=== PATIENT | male | born 1955 | race Two or more races ===

== ENCOUNTER 2021-02-19 15:46 | Emergency (ER) | payer OTHER ==
[2021-02-19 15:57] VITALS: BP 135/79; PULSE 83; TEMP 97.7; BMI 21.9
[2021-02-19] MEDS ORDERED: METHOCARBAMOL 500 MG TABLET PO ONE (16:29)
[2021-02-19] MEDS ORDERED: KETOROLAC TROMETHAMINE 30 MG/1 ML VIAL IM ONE (16:29)
[2021-02-19] MEDS ORDERED: LIDOCAINE 5% TOPICAL PATCH TP ONE (16:30)
[2021-02-19] MEDS ORDERED: LIDOCAINE 5% TOPICAL PATCH ONE (17:11)
[2021-02-19] MEDS ORDERED: METHOCARBAMOL 500 MG TABLET ONE (17:11)
[2021-02-19] MEDS ORDERED: KETOROLAC TROMETHAMINE 30 MG/1 ML VIAL ONE (17:12)
== END 2021-02-19 18:16 | disposition home or self-care (01) ==
LOC: JER 15:46
PROC: 3E0233Z Introduction of Anti-inflammatory into Muscle, Percutaneous Approach (ICD-10-PCS; principal; 2021-02-19)
DX: M62.830 Muscle spasm of back (principal); M54.41 Lumbago with sciatica, right side
CPT/HCPCS: 72050-TC-FY; 72100-TC-FY; 99284-25

== ENCOUNTER 2021-03-03 04:10 | Inpatient (IN) | payer OTHER ==
[2021-03-02 09:10] VITALS: BMI 23.6
[2021-03-03] MEDS ORDERED: GENTAMICIN SO4 80 MG/2 ML VIAL ONE ×2 (07:04→10:59)
[2021-03-03] MEDS ORDERED: VANCOMYCIN 1,000 MG VIAL (RESTRICTED TO ID ONLY) ONE ×2 (07:05→08:51)
[2021-03-03] MEDS ORDERED: LIDOCAINE 1%/EPI 1:100000 (50 ML MULTI DOSE VIAL) ONE ×2 (07:05→10:24)
[2021-03-03] MEDS ORDERED: THROMBIN (BOVINE) 5,000 UNIT VIAL TP ONE ×7 (07:05→12:43)
[2021-03-03] MEDS ORDERED: PROPOFOL 20 ML ONE (07:09)
[2021-03-03] MEDS ORDERED: fentaNYL CITRATE 250 MCG/5 ML VIAL ONE ×3 (07:09→12:26)
[2021-03-03] MEDS ORDERED: ROCURONIUM BROMIDE 50 MG/5 ML SYRINGE ONE ×2 (07:10→11:21)
[2021-03-03] MEDS ORDERED: MIDAZOLAM HCL 2 MG/2 ML SINGLE DOSE VIAL ONE ×2 (07:10)
[2021-03-03 08:09] LABS: URINE APPEARANCE CLEAR; URINE BILIRUBIN NEGATIVE (NEGATIVE); URINE COLOR YELLOW; URINE GLUCOSE (UA) NEGATIVE (NEGATIVE); URINE KETONE NEGATIVE (NEGATIVE); URINE LEUK ESTERASE NEGATIVE (NEGATIVE); URINE NITRITE NEGATIVE (NEGATIVE); URINE PROTEIN NEGATIVE (NEGATIVE); URINE UROBILINOGEN 0.2 mg/dL (0.2-1.0)
[2021-03-03] MEDS ORDERED: ceFAZolin SODIUM 1 GM VIAL IVPB ONE ×3 (08:25→14:20)
[2021-03-03] MEDS ORDERED: LIDOCAINE 1%/EPI 1:100000 (50 ML MULTI DOSE VIAL) INF ONE ×2 (08:48)
[2021-03-03] MEDS ORDERED: TRANEXAMIC ACID 1000 MG/10 ML VIAL ONE (08:51)
[2021-03-03] MEDS ORDERED: DEXAMETHASONE SOD PHOSPHATE 4 MG/1 ML VIAL ONE (08:51)
[2021-03-03] MEDS ORDERED: ceFAZolin SODIUM 1 GM VIAL ONE ×2 (08:51→20:52)
[2021-03-03] MEDS ORDERED: ONDANSETRON 4 MG/2 ML VIAL ONE (08:51)
[2021-03-03] MEDS ORDERED: HYDROmorphone HCl 2 MG/ML VIAL ONE (08:57)
[2021-03-03] MEDS ORDERED: VANCOMYCIN 1,000 MG VIAL (RESTRICTED TO ID ONLY) IVPB ONE (08:59)
[2021-03-03] MEDS ORDERED: BACITRACIN 50,000 UNITS VIAL TP ONE ×2 (09:40)
[2021-03-03] MEDS ORDERED: GENTAMICIN SO4 80 MG/2 ML VIAL IVPB ONE ×2 (09:41)
[2021-03-03] MEDS ORDERED: HYDROGEN PEROXIDE 473 ML PO ONE ×2 (09:44)
[2021-03-03] MEDS ORDERED: BUPIVACAINE LIPOSOME/PF (EXPAREL) 266 MG/20 ML VIAL ONE ×2 (11:00→13:28)
[2021-03-03] MEDS ORDERED: METHOCARBAMOL 500 MG TABLET PO PRN (12:31)
[2021-03-03] MEDS ORDERED: [UNRECOGNIZED DRUG - OTHER] PO PRN (12:31)
[2021-03-03] MEDS ORDERED: PHENYLEPHRINE HCL 10 MG/1 ML SINGLE DOSE VIAL ONE ×2 (13:14→13:15)
[2021-03-03] MEDS ORDERED: NEOSTIGMINE METHYLSULFATE 0.5 MG/1 ML - 10 ML MDV ONE (13:27)
[2021-03-03] MEDS ORDERED: GLYCOPYRROLATE 0.2 MG/1 ML VIAL ONE (13:27)
[2021-03-03] MEDS ORDERED: BUPIVACAINE LIPOSOME/PF (EXPAREL) 266 MG/20 ML VIAL NR ONE (14:00)
[2021-03-03] MEDS ORDERED: BUPIVACAINE HCL/PF 0.5% (5 MG/ML) 30 ML VIAL IJ ONE (14:00)
[2021-03-03] MEDS ORDERED: SUCCINYLCHOLINE CHLORIDE 200 MG/10 ML SYRINGE ONE (14:13)
[2021-03-03] MEDS ORDERED: oxyCODONE HCL 5 MG TABLET PO PRN (14:46)
[2021-03-03] MEDS ORDERED: ONDANSETRON 4 MG/2 ML VIAL IVPUSH PRN ×2 (14:46→15:09)
[2021-03-03] MEDS ORDERED: HYDROmorphone HCl 2 MG/ML VIAL SQ PRN (14:46)
[2021-03-03] MEDS ORDERED: ACETAMINOPHEN 1000 MG/100 ML VIAL (NON FORMULARY) IVPB PRN (15:09)
[2021-03-03] MEDS ORDERED: ACETAMINOPHEN INJECTION 100 ML IVPB ONE (19:39)
[2021-03-03] MEDS: LACTATED RINGERS SOLUTION 1,000 ML IV SCH (20:00)
[2021-03-03 20:47] LABS: ARTERIAL BLD GAS O2 SATURATION 97.2 mmHg (95-98); ARTERIAL BLOOD GAS BASE EXCESS -2.3 mmol/L (-2-2); ARTERIAL BLOOD GAS PO2 96.1 mmHg (80-100); ARTERIAL BLOOD GAS pH 7.374 (7.350-7.450)
[2021-03-03 20:48] LABS: ALLENS TEST POSITIVE
[2021-03-03 21:00] LABS: BASO % 0.1 % (0-2.0); HEMOGLOBIN 12.2 GM/dL (11.7-16.9); LYMPH % 2.6 % (8-40); MCH 30.4 pg (25.7-33.7); MEAN CELL VOLUME 92.2 fl (80-96); MEAN PLT VOLUME 9.6 fl (7.5-11.1); MONO % 2.3 % (3.8-10.2); PLATELET COUNT 176 K/MM3 (134-434); RBC 4.02 M/mm3 (4.00-5.60); RDW 12.6 % (11.9-15.9); WHITE BLOOD COUNT 16.9 K/mm3 (4.0-10.0)
[2021-03-03] MEDS: CEFAZOLIN 2 GM/D5W 2 GM/50 ML ML IVPB SCH (21:00)
[2021-03-03 21:20] LABS: CALCIUM 8.3 mg/dL (8.5-10.1)
[2021-03-03 21:21] LABS: BLOOD UREA NITROGEN 17.1 mg/dL (7-18)
[2021-03-03 21:23] LABS: PHOSPHOROUS 2.7 mg/dL (2.5-4.9)
[2021-03-03 21:24] LABS: CREATININE 0.9 mg/dL (0.55-1.3)
[2021-03-03 21:25] LABS: BILIRUBIN,TOTAL 0.7 mg/dL (0.2-1); TOT PROT 5.6 g/dl (6.4-8.2)
[2021-03-03 22:53] LABS: ANISOCYTOSIS 0; MACROCYTOSIS 0; PLATELET ESTIMATE NORMAL
[2021-03-04] MEDS: CEFAZOLIN 2 GM/D5W 2 GM/50 ML ML IVPB SCH ×2 (02:02→09:34)
[2021-03-04] MEDS: LACTATED RINGERS SOLUTION 1,000 ML IV SCH ×2 (02:05→15:51)
[2021-03-04 07:39] LABS: HEMATOCRIT 32.8 % (35.4-49); HEMOGLOBIN 11.2 GM/dL (11.7-16.9); MCH 31.1 pg (25.7-33.7); MCHC 34.1 g/dl (32.0-35.9); MEAN PLT VOLUME 9.5 fl (7.5-11.1); PLATELET COUNT 166 K/MM3 (134-434); WHITE BLOOD COUNT 19.1 K/mm3 (4.0-10.0)
[2021-03-04 08:03] LABS: CALCIUM 8.3 mg/dL (8.5-10.1)
[2021-03-04 08:04] LABS: BLOOD UREA NITROGEN 17.3 mg/dL (7-18); MAGNESIUM 1.7 mg/dL (1.8-2.4)
[2021-03-04 08:07] LABS: CREATININE 0.8 mg/dL (0.55-1.3)
[2021-03-04] MEDS: amLODIPine BESYLATE 5 MG TABLET (FP) PO SCH (09:34)
[2021-03-04] MEDS: oxyCODONE HCL 5 MG TABLET PO PRN (12:54)
[2021-03-04] MEDS: HYDROmorphone HCl 2 MG/ML VIAL IVPB PRN ×2 (14:42→21:42)
[2021-03-04] MEDS: BENZOCAINE/MENTH/CETYLPYRD CL 1 EACH LOZENGE MM PRN ×2 (17:00→21:46)
[2021-03-04] MEDS: DOCUSATE SODIUM 100 MG CAPSULE (FP) PO SCH (21:45)
[2021-03-05] MEDS ORDERED: MELATONIN 5 MG TABLETS PO ONE (02:15)
[2021-03-05] MEDS: BENZOCAINE/MENTH/CETYLPYRD CL 1 EACH LOZENGE MM PRN ×2 (02:17→18:09)
[2021-03-05] MEDS: DOCUSATE SODIUM 100 MG CAPSULE (FP) PO SCH ×3 (06:46→22:11)
[2021-03-05] MEDS ORDERED: diazePAM 5 MG TABLET PO SCH (10:00)
[2021-03-05] MEDS ORDERED: POLYETHYLENE GLYCOL 3350 119 GM BTL PO SCH (10:00)
[2021-03-05] MEDS: amLODIPine BESYLATE 5 MG TABLET (FP) PO SCH (10:40)
[2021-03-05] MEDS: oxyCODONE HCL 5 MG TABLET PO PRN (10:40)
[2021-03-05 12:02] LABS: BASO % 0.3 % (0-2.0); EOS % 0.1 % (0-4.5); HEMATOCRIT 30.2 % (35.4-49); HEMOGLOBIN 10.2 GM/dL (11.7-16.9); LYMPH % 4.8 % (8-40); MCH 31.1 pg (25.7-33.7); MCHC 33.7 g/dl (32.0-35.9); MEAN CELL VOLUME 92.2 fl (80-96); MEAN PLT VOLUME 9.1 fl (7.5-11.1); MONO % 8.8 % (3.8-10.2); PLATELET COUNT 131 K/MM3 (134-434); RBC 3.28 M/mm3 (4.00-5.60); RDW 12.5 % (11.9-15.9); WHITE BLOOD COUNT 15.3 K/mm3 (4.0-10.0)
[2021-03-05] MEDS: TAMSULOSIN HCL 0.4 MG CAP PO SCH (12:15)
[2021-03-05 12:26] LABS: CALCIUM 8.6 mg/dL (8.5-10.1)
[2021-03-05 12:27] LABS: ALBUMIN 2.8 g/dl (3.4-5.0); BLOOD UREA NITROGEN 15.3 mg/dL (7-18); MAGNESIUM 2.1 mg/dL (1.8-2.4)
[2021-03-05 12:30] LABS: CREATININE 0.7 mg/dL (0.55-1.3)
[2021-03-05 12:31] LABS: TOT PROT 5.4 g/dl (6.4-8.2)
[2021-03-05] MEDS ORDERED: oxyCODONE HCL 5 MG TABLET PO PRN (13:48)
[2021-03-05] MEDS ORDERED: ACETAMINOPHEN 500 MG TABLET (FP) PO PRN (16:22)
[2021-03-05] MEDS ORDERED: METHOCARBAMOL 500 MG TABLET PO PRN (23:33)
[2021-03-05] MEDS ORDERED: [UNRECOGNIZED DRUG - OTHER] PO PRN (23:33)
[2021-03-05] MEDS ORDERED: BENZOCAINE/MENTH/CETYLPYRD CL 1 EACH LOZENGE MM PRN (23:33)
[2021-03-05] MEDS ORDERED: ONDANSETRON 4 MG/2 ML VIAL IVPUSH PRN (23:33)
[2021-03-06] MEDS: diazePAM 5 MG TABLET PO PRN (02:07)
[2021-03-06] MEDS ORDERED: LORazepam 2 MG/ML SDV VIAL IVPUSH ONE (02:39)
[2021-03-06] MEDS: DOCUSATE SODIUM 100 MG CAPSULE (FP) PO SCH ×3 (05:44→22:31)
[2021-03-06] MEDS ORDERED: ACETAMINOPHEN 1000 MG/100 ML VIAL (NON FORMULARY) IVPB ONE (09:55)
[2021-03-06] MEDS: SODIUM CHLORIDE 1,000 ML IV SCH (10:10)
[2021-03-06] MEDS ORDERED: BISACODYL 10 MG SUPP.RECT PR ONE (10:15)
[2021-03-06] MEDS: TAMSULOSIN HCL 0.4 MG CAP PO SCH (10:16)
[2021-03-06] MEDS: POLYETHYLENE GLYCOL 3350 119 GM BTL PO SCH (10:16)
[2021-03-06] MEDS: amLODIPine BESYLATE 5 MG TABLET (FP) PO SCH (10:19)
[2021-03-06 11:08] LABS: SARS-CoV-2 NAA Not Detected (Not Detected)
[2021-03-06] MEDS: AMINO ACIDS 4.25%/D5W 1,000 ML IV SCH (12:06)
[2021-03-06 12:52] LABS: EPI CELLS 8 /uL (0-25.1); HYALINE CASTS 0 /uL (0-3.1); PH,URINE 6.5 (5.0-8.0); URINE APPEARANCE CLEAR; URINE BACTERIA 124 /uL (0-1359); URINE BILIRUBIN NEGATIVE (NEGATIVE); URINE COLOR YELLOW; URINE GLUCOSE (UA) NEGATIVE (NEGATIVE); URINE KETONE 4+ (NEGATIVE); URINE LEUK ESTERASE NEGATIVE (NEGATIVE); URINE NITRITE NEGATIVE (NEGATIVE); URINE PROTEIN NEGATIVE (NEGATIVE); URINE RBC 25 /uL (0-23.9); URINE WBC 3 /uL (0-25.8)
[2021-03-06 14:18] LABS: BASO % 0.2 % (0-2.0); EOS % 0.1 % (0-4.5); HEMATOCRIT 31.4 % (35.4-49); HEMOGLOBIN 10.6 GM/dL (11.7-16.9); MCH 31.3 pg (25.7-33.7); MCHC 33.9 g/dl (32.0-35.9); MEAN CELL VOLUME 92.5 fl (80-96); MEAN PLT VOLUME 9.5 fl (7.5-11.1); MONO % 5.5 % (3.8-10.2); NEUT % 90.2 % (42.8-82.8); PLATELET COUNT 146 K/MM3 (134-434); RBC 3.39 M/mm3 (4.00-5.60); RDW 12.5 % (11.9-15.9); WHITE BLOOD COUNT 16.4 K/mm3 (4.0-10.0)
[2021-03-06 14:23] LABS: CALCIUM 8.7 mg/dL (8.5-10.1)
[2021-03-06 14:24] LABS: ALBUMIN 2.8 g/dl (3.4-5.0); BLOOD UREA NITROGEN 15.8 mg/dL (7-18)
[2021-03-06 14:27] LABS: CREATININE 0.6 mg/dL (0.55-1.3)
[2021-03-06 14:28] LABS: TOT PROT 5.6 g/dl (6.4-8.2)
[2021-03-07] MEDS ORDERED: ACETAMINOPHEN 1000 MG/100 ML VIAL (NON FORMULARY) IVPB ONE ×2 (02:24→15:49)
[2021-03-07] MEDS: diazePAM 5 MG TABLET PO PRN (03:48)
[2021-03-07] MEDS: DOCUSATE SODIUM 100 MG CAPSULE (FP) PO SCH ×3 (05:04→21:04)
[2021-03-07] MEDS: TAMSULOSIN HCL 0.4 MG CAP PO SCH (09:30)
[2021-03-07] MEDS: amLODIPine BESYLATE 5 MG TABLET (FP) PO SCH (11:00)
[2021-03-07] MEDS: POLYETHYLENE GLYCOL 3350 119 GM BTL PO SCH (11:00)
[2021-03-07] MEDS: AMINO ACIDS 4.25%/D5W 1,000 ML IV SCH (11:22)
[2021-03-07] MEDS: SODIUM CHLORIDE 1,000 ML IV SCH (11:23)
[2021-03-07 13:36] LABS: BASO % 0.1 % (0-2.0); EOS % 0.4 % (0-4.5); HEMATOCRIT 31.1 % (35.4-49); HEMOGLOBIN 10.6 GM/dL (11.7-16.9); LYMPH % 6.1 % (8-40); MCH 31.3 pg (25.7-33.7); MCHC 34.2 g/dl (32.0-35.9); MEAN CELL VOLUME 91.4 fl (80-96); MEAN PLT VOLUME 9.1 fl (7.5-11.1); MONO % 7.5 % (3.8-10.2); NEUT % 85.9 % (42.8-82.8); PLATELET COUNT 190 K/MM3 (134-434); RDW 12.1 % (11.9-15.9); WHITE BLOOD COUNT 9.9 K/mm3 (4.0-10.0)
[2021-03-07 14:08] LABS: ALBUMIN 2.7 g/dl (3.4-5.0); MAGNESIUM 2.4 mg/dL (1.8-2.4)
[2021-03-07 14:11] LABS: CREATININE 0.5 mg/dL (0.55-1.3)
[2021-03-07 14:13] LABS: BILIRUBIN,TOTAL 0.7 mg/dL (0.2-1); TOT PROT 5.8 g/dl (6.4-8.2)
[2021-03-08] MEDS: diazePAM 5 MG TABLET PO PRN ×2 (01:03→21:11)
[2021-03-08] MEDS ORDERED: LORazepam 2 MG/ML SDV VIAL IVPUSH ONE (01:35)
[2021-03-08] MEDS: DOCUSATE SODIUM 100 MG CAPSULE (FP) PO SCH ×3 (05:12→21:11)
[2021-03-08 08:24] LABS: BASO % 0.3 % (0-2.0); EOS % 0.4 % (0-4.5); HEMATOCRIT 30.3 % (35.4-49); HEMOGLOBIN 10.5 GM/dL (11.7-16.9); LYMPH % 7.5 % (8-40); MCH 31.8 pg (25.7-33.7); MCHC 34.6 g/dl (32.0-35.9); MEAN CELL VOLUME 91.9 fl (80-96); MEAN PLT VOLUME 8.5 fl (7.5-11.1); MONO % 7.6 % (3.8-10.2); NEUT % 84.2 % (42.8-82.8); PLATELET COUNT 205 K/MM3 (134-434); RDW 12.3 % (11.9-15.9); WHITE BLOOD COUNT 9.8 K/mm3 (4.0-10.0)
[2021-03-08 08:37] LABS: CALCIUM 8.7 mg/dL (8.5-10.1)
[2021-03-08 08:38] LABS: ALBUMIN 2.8 g/dl (3.4-5.0); BLOOD UREA NITROGEN 25.1 mg/dL (7-18); MAGNESIUM 2.2 mg/dL (1.8-2.4)
[2021-03-08 08:41] LABS: CREATININE 0.4 mg/dL (0.55-1.3)
[2021-03-08 08:42] LABS: BILIRUBIN,TOTAL 0.7 mg/dL (0.2-1)
[2021-03-08] MEDS: TAMSULOSIN HCL 0.4 MG CAP PO SCH (09:30)
[2021-03-08] MEDS: POLYETHYLENE GLYCOL 3350 119 GM BTL PO SCH (09:51)
[2021-03-08] MEDS: amLODIPine BESYLATE 5 MG TABLET (FP) PO SCH (09:51)
[2021-03-08] MEDS: KCL 10 MEQ IVPB 10 MEQ/100 ML INFUS.BAG IVPB SCH ×2 (09:51→11:46)
[2021-03-08] MEDS ORDERED: ACETAMINOPHEN 1000 MG/100 ML VIAL (NON FORMULARY) IVPB PRN (09:53)
[2021-03-08] MEDS: SODIUM CHLORIDE 1,000 ML IV SCH (11:48)
[2021-03-08] MEDS: AMINO ACIDS 4.25%/D5W 1,000 ML IV SCH (11:48)
[2021-03-09] MEDS: DOCUSATE SODIUM 100 MG CAPSULE (FP) PO SCH ×3 (05:19→21:03)
[2021-03-09 08:38] LABS: BASO % 0.2 % (0-2.0); EOS % 1.2 % (0-4.5); HEMATOCRIT 30.3 % (35.4-49); HEMOGLOBIN 10.4 GM/dL (11.7-16.9); LYMPH % 9.3 % (8-40); MCH 31.2 pg (25.7-33.7); MCHC 34.4 g/dl (32.0-35.9); MEAN CELL VOLUME 90.6 fl (80-96); MONO % 8.5 % (3.8-10.2); NEUT % 80.8 % (42.8-82.8); PLATELET COUNT 239 K/MM3 (134-434); RBC 3.35 M/mm3 (4.00-5.60); RDW 12.3 % (11.9-15.9); WHITE BLOOD COUNT 7.7 K/mm3 (4.0-10.0)
[2021-03-09 09:03] LABS: CALCIUM 9.3 mg/dL (8.5-10.1)
[2021-03-09 09:04] LABS: BLOOD UREA NITROGEN 20.9 mg/dL (7-18); MAGNESIUM 2.2 mg/dL (1.8-2.4)
[2021-03-09 09:05] LABS: ALBUMIN 2.7 g/dl (3.4-5.0)
[2021-03-09 09:07] LABS: CREATININE 0.5 mg/dL (0.55-1.3)
[2021-03-09 09:08] LABS: BILIRUBIN,TOTAL 0.6 mg/dL (0.2-1); TOT PROT 5.8 g/dl (6.4-8.2)
[2021-03-09] MEDS ORDERED: KCL 10 MEQ IVPB 10 MEQ/100 ML INFUS.BAG IVPB SCH ×3 (09:15→10:14)
[2021-03-09] MEDS: TAMSULOSIN HCL 0.4 MG CAP PO SCH (09:55)
[2021-03-09] MEDS: amLODIPine BESYLATE 5 MG TABLET (FP) PO SCH (09:56)
[2021-03-09] MEDS: SODIUM CHLORIDE 1,000 ML IV SCH (09:56)
[2021-03-09] MEDS: POLYETHYLENE GLYCOL 3350 119 GM BTL PO SCH (09:56)
[2021-03-09] MEDS ORDERED: AMINO ACIDS IV SCH (10:07)
[2021-03-09] MEDS ORDERED: KCL IV SCH (10:07)
[2021-03-09] MEDS: POTASSIUM CHLORIDE IV SCH (15:15)
[2021-03-09] MEDS: [UNRECOGNIZED DRUG - OTHER] IV SCH (15:15)
[2021-03-09] MEDS: AMINO ACIDS IV SCH (15:15)
[2021-03-09] MEDS: AMINO ACIDS 4.25%/D5W 1,000 ML IV SCH (16:52)
[2021-03-09] MEDS: diazePAM 5 MG TABLET PO PRN (21:03)
[2021-03-10] MEDS: DOCUSATE SODIUM 100 MG CAPSULE (FP) PO SCH ×3 (06:25→21:29)
[2021-03-10 08:17] LABS: BASO % 0.3 % (0-2.0); EOS % 1.4 % (0-4.5); HEMATOCRIT 29.2 % (35.4-49); HEMOGLOBIN 10.1 GM/dL (11.7-16.9); LYMPH % 9.2 % (8-40); MCH 31.6 pg (25.7-33.7); MCHC 34.6 g/dl (32.0-35.9); MEAN CELL VOLUME 91.5 fl (80-96); MEAN PLT VOLUME 8.4 fl (7.5-11.1); MONO % 8.4 % (3.8-10.2); NEUT % 80.7 % (42.8-82.8); PLATELET COUNT 237 K/MM3 (134-434); RBC 3.19 M/mm3 (4.00-5.60); RDW 12.3 % (11.9-15.9); WHITE BLOOD COUNT 7.4 K/mm3 (4.0-10.0)
[2021-03-10 08:32] LABS: CALCIUM 8.7 mg/dL (8.5-10.1)
[2021-03-10 08:33] LABS: ALBUMIN 2.7 g/dl (3.4-5.0); BLOOD UREA NITROGEN 17.1 mg/dL (7-18); MAGNESIUM 1.9 mg/dL (1.8-2.4)
[2021-03-10 08:36] LABS: CREATININE 0.4 mg/dL (0.55-1.3)
[2021-03-10 08:38] LABS: BILIRUBIN,TOTAL 0.5 mg/dL (0.2-1); TOT PROT 5.5 g/dl (6.4-8.2)
[2021-03-10] MEDS ORDERED: PT OWN MED DRAWER 7, Y5N ONE (09:02)
[2021-03-10] MEDS: SODIUM CHLORIDE 1,000 ML IV SCH (09:26)
[2021-03-10] MEDS: TAMSULOSIN HCL 0.4 MG CAP PO SCH (10:08)
[2021-03-10] MEDS: amLODIPine BESYLATE 5 MG TABLET (FP) PO SCH (10:08)
[2021-03-10] MEDS: POLYETHYLENE GLYCOL 3350 119 GM BTL PO SCH (10:09)
[2021-03-10] MEDS ORDERED: POTASSIUM CHLORIDE TABS 20 MEQ TABLET.ER (FP) PO ONE (10:36)
[2021-03-10] MEDS ORDERED: POTASSIUM CHLORIDE ORAL LIQUID 20 MEQ/15 ML PO ONE (11:30)
[2021-03-10] MEDS: [UNRECOGNIZED DRUG - OTHER] IV SCH (17:49)
[2021-03-10] MEDS: AMINO ACIDS IV SCH (17:49)
[2021-03-10] MEDS: POTASSIUM CHLORIDE IV SCH (17:49)
[2021-03-11] MEDS: [UNRECOGNIZED DRUG - OTHER] IV SCH (00:22)
[2021-03-11] MEDS: AMINO ACIDS IV SCH (00:22)
[2021-03-11] MEDS: POTASSIUM CHLORIDE IV SCH (00:22)
[2021-03-11] MEDS: DOCUSATE SODIUM 100 MG CAPSULE (FP) PO SCH (06:08)
[2021-03-11 07:38] VITALS: BP 134/86; PULSE 102; TEMP 98.5
[2021-03-11] MEDS: TAMSULOSIN HCL 0.4 MG CAP PO SCH (08:21)
[2021-03-11] MEDS: amLODIPine BESYLATE 5 MG TABLET (FP) PO SCH (09:54)
[2021-03-11] MEDS: POLYETHYLENE GLYCOL 3350 119 GM BTL PO SCH (09:54)
[2021-03-11 10:12] LABS: BASO % 0.3 % (0-2.0); EOS % 1.1 % (0-4.5); HEMATOCRIT 31.2 % (35.4-49); HEMOGLOBIN 10.7 GM/dL (11.7-16.9); LYMPH % 11.1 % (8-40); MCH 31.2 pg (25.7-33.7); MCHC 34.3 g/dl (32.0-35.9); MEAN CELL VOLUME 91.1 fl (80-96); MEAN PLT VOLUME 7.4 fl (7.5-11.1); MONO % 9.6 % (3.8-10.2); NEUT % 77.9 % (42.8-82.8); PLATELET COUNT 274 K/MM3 (134-434); RBC 3.42 M/mm3 (4.00-5.60); RDW 12.3 % (11.9-15.9); WHITE BLOOD COUNT 7.3 K/mm3 (4.0-10.0)
[2021-03-11 10:32] LABS: CALCIUM 9.1 mg/dL (8.5-10.1)
[2021-03-11 10:33] LABS: ALBUMIN 2.7 g/dl (3.4-5.0); BLOOD UREA NITROGEN 14.9 mg/dL (7-18)
[2021-03-11 10:36] LABS: CREATININE 0.6 mg/dL (0.55-1.3)
[2021-03-11 10:38] LABS: BILIRUBIN,TOTAL 0.5 mg/dL (0.2-1); TOT PROT 5.8 g/dl (6.4-8.2)
== END 2021-03-11 11:00 | DRG 453 ==
LOC: J2C 04:10 → J4S 22:41 → J8W 03-05 21:55
PROVIDERS: ADMIT Neurological Surgery; ATTEND Nurse Practitioner Acute Care
PROC: 0RG2071 Fusion of 2 or more Cervical Vertebral Joints with Autologous Tissue Substitute, Posterior Approach, Posterior Column, Open Approach (ICD-10-PCS; 2021-03-03)
PROC: 00NW0ZZ Release Cervical Spinal Cord, Open Approach (ICD-10-PCS; 2021-03-03)
PROC: 01N10ZZ Release Cervical Nerve, Open Approach (ICD-10-PCS; 2021-03-03)
PROC: 0RB30ZZ Excision of Cervical Vertebral Disc, Open Approach (ICD-10-PCS; 2021-03-03)
PROC: 0RG4071 Fusion of Cervicothoracic Vertebral Joint with Autologous Tissue Substitute, Posterior Approach, Posterior Column, Open Approach (ICD-10-PCS; 2021-03-03)
PROC: 00NW0ZZ Release Cervical Spinal Cord, Open Approach (ICD-10-PCS; 2021-03-03)
PROC: 00NX0ZZ Release Thoracic Spinal Cord, Open Approach (ICD-10-PCS; 2021-03-03)
PROC: 01N10ZZ Release Cervical Nerve, Open Approach (ICD-10-PCS; 2021-03-03)
PROC: 01N80ZZ Release Thoracic Nerve, Open Approach (ICD-10-PCS; 2021-03-03)
PROC: 0JX70ZZ Transfer Back Subcutaneous Tissue and Fascia, Open Approach (ICD-10-PCS; 2021-03-03)
PROC: 4A11X4G Monitoring of Peripheral Nervous Electrical Activity, Intraoperative, External Approach (ICD-10-PCS; 2021-03-03)
PROC: 0RG20A0 Fusion of 2 or more Cervical Vertebral Joints with Interbody Fusion Device, Anterior Approach, Anterior Column, Open Approach (ICD-10-PCS; principal; 2021-03-03 08:00)
DX: M47.12 Other spondylosis with myelopathy, cervical region (principal); G93.41 Metabolic encephalopathy; F05 Delirium due to known physiological condition; M48.12 Ankylosing hyperostosis [Forestier], cervical region; I10 Essential (primary) hypertension; Z20.822 Contact with and (suspected) exposure to COVID-19
CPT/HCPCS: 36415; 36600; 70450-TC; 71045-TC-FY; 72050-TC-FY; 72125-TC; 76000-TC-FY; 80048; 80053; 81003; 82803; 83605; 83735; 84100; 85025; 85027; 86850; 86900; 86901; 87040; 87086; 87186; 94010; 94760; 97116-GP; 97161-GP; C9803; J0131; U0003; U0005

== ENCOUNTER 2021-09-29 04:18 | Inpatient (IN) | payer OTHER ==
[2021-09-25 16:41] VITALS: BMI 23.6
[2021-09-29] MEDS ORDERED: THROMBIN (BOVINE) 20,000 UNIT VIAL TP ONE (07:27)
[2021-09-29] MEDS ORDERED: GENTAMICIN SO4 80 MG/2 ML VIAL ONE (07:27)
[2021-09-29] MEDS ORDERED: BUPIVACAINE HCL/PF 0.5% (5MG/ML) 10 ML VIAL ONE (07:27)
[2021-09-29] MEDS ORDERED: BACITRACIN 15 GM TUBE TOPICAL OINTMENT ONE (07:27)
[2021-09-29] MEDS ORDERED: BUPIVACAINE LIPOSOME/PF (EXPAREL) 266 MG/20 ML VIAL ONE (07:27)
[2021-09-29] MEDS ORDERED: PROPOFOL 20 ML ONE ×2 (07:34)
[2021-09-29] MEDS ORDERED: fentaNYL CITRATE 250 MCG/5 ML VIAL ONE (07:34)
[2021-09-29] MEDS ORDERED: MIDAZOLAM HCL 2 MG/2 ML SINGLE DOSE VIAL ONE ×2 (07:34)
[2021-09-29] MEDS ORDERED: ceFAZolin SODIUM 1 GM VIAL ONE ×3 (07:35→17:36)
[2021-09-29] MEDS ORDERED: ONDANSETRON 4 MG/2 ML VIAL ONE (07:35)
[2021-09-29] MEDS ORDERED: LIDOCAINE HCL/PF 2% SDV 5ML VIAL ONE (07:35)
[2021-09-29] MEDS ORDERED: DEXAMETHASONE SOD PHOSPHATE 4 MG/1 ML VIAL ONE ×2 (07:35→09:36)
[2021-09-29] MEDS ORDERED: VANCOMYCIN 1,000 MG VIAL (RESTRICTED TO ID ONLY) ONE ×3 (07:45→11:38)
[2021-09-29] MEDS ORDERED: LIDOCAINE 1%/EPI 1:100000 (20 ML MULTI DOSE VIAL) IJ ONE ×2 (07:50→08:50)
[2021-09-29] MEDS ORDERED: ceFAZolin 2 GRAM PREMIX BAG IVPB ONE ×2 (07:50→08:25)
[2021-09-29] MEDS ORDERED: THROMBIN (BOVINE) 5,000 UNIT VIAL TP ONE ×2 (07:51→09:00)
[2021-09-29] MEDS ORDERED: VANCOMYCIN 1 GM in D5W (PRE-DOCKED) 1,000 MG/250 ML IVPB ONE ×3 (07:51→12:47)
[2021-09-29] MEDS ORDERED: GENTAMICIN SO4 80 MG/2 ML VIAL IVPB ONE ×2 (07:52→09:11)
[2021-09-29] MEDS ORDERED: BUPIVACAINE LIPOSOME/PF (EXPAREL) 266 MG/20 ML VIAL NR ONE ×2 (07:53→13:30)
[2021-09-29] MEDS ORDERED: HYDROGEN PEROXIDE 473 ML PO ONE ×3 (07:53→09:15)
[2021-09-29] MEDS ORDERED: BUPIVACAINE HCL/PF 0.5% (5MG/ML) 10 ML VIAL IJ ONE ×2 (07:54→13:30)
[2021-09-29] MEDS ORDERED: MORPHINE 5 MG/10 ML AMP - FOR COMPOUNDING USE ONLY ONE (08:19)
[2021-09-29] MEDS ORDERED: morphine SULFATE/PF 1 MG/2 ML (2cc Syringe - QUVA) IT ONE (08:30)
[2021-09-29] MEDS ORDERED: TRANEXAMIC ACID 1000 MG/10 ML VIAL ONE ×2 (09:36→12:41)
[2021-09-29] MEDS ORDERED: ONDANSETRON 4 MG/2 ML VIAL IVPUSH PRN ×3 (10:19→13:17)
[2021-09-29] MEDS ORDERED: NALOXONE HCL 0.4 MG/ML VIAL IVPUSH PRN (10:19)
[2021-09-29] MEDS ORDERED: LACTATED RINGERS SOLUTION 1,000 ML IV SCH (10:30)
[2021-09-29] MEDS ORDERED: ceFAZolin SODIUM 1 GM VIAL IVPB ONE (11:25)
[2021-09-29] MEDS ORDERED: NEOSTIGMINE METHYLSULFATE 0.5 MG/1 ML - 10 ML MDV ONE (13:08)
[2021-09-29] MEDS ORDERED: GLYCOPYRROLATE 0.2 MG/1 ML VIAL ONE (13:09)
[2021-09-29] MEDS ORDERED: ACETAMINOPHEN INJECTION 100 ML IVPB ONE (13:13)
[2021-09-29] MEDS ORDERED: oxyCODONE HCL 5 MG TABLET PO PRN ×2 (13:17)
[2021-09-29] MEDS ORDERED: diphenhydrAMINE HCL 25 MG CAPSULE (FP) PO PRN (13:17)
[2021-09-29] MEDS ORDERED: morphine SULFATE 4 MG/ML VIAL IVPUSH PRN (13:17)
[2021-09-29] MEDS ORDERED: LACTATED RINGERS SOLUTION 1,000 ML/1,000 ML INFUS.BAG IV SCH ×2 (13:30→16:30)
[2021-09-29] MEDS: DOCUSATE SODIUM 100 MG CAPSULE (FP) PO SCH ×2 (16:54→22:37)
[2021-09-29] MEDS: ACETAMINOPHEN 1000 MG/100 ML VIAL IVPB SCH ×3 (16:55→22:38)
[2021-09-29] MEDS ORDERED: DEXTROSE 5%-WATER - 50 ML IVPB ONE (17:36)
[2021-09-29] MEDS: CEFAZOLIN 1 GM in DEXTROSE 5%-WATER - 1 GM/50 ML IVPB IVPB SCH (17:40)
[2021-09-29] MEDS ORDERED: DOCUSATE SODIUM 100 MG CAPSULE (FP) PO SCH (22:00)
[2021-09-29] MEDS: HEPARIN NA (PORCINE) 5,000 UNITS/ML 1ML VIAL SQ SCH (22:37)
[2021-09-30] MEDS ORDERED: DEXTROSE 5%-WATER - 50 ML IVPB ONE ×3 (02:05→16:57)
[2021-09-30] MEDS ORDERED: ceFAZolin SODIUM 1 GM VIAL ONE ×3 (02:05→16:57)
[2021-09-30] MEDS: CEFAZOLIN 1 GM in DEXTROSE 5%-WATER - 1 GM/50 ML IVPB IVPB SCH ×3 (02:27→17:11)
[2021-09-30] MEDS ORDERED: MELATONIN 5 MG TABLETS PO ONE (03:05)
[2021-09-30] MEDS: ACETAMINOPHEN 1000 MG/100 ML VIAL IVPB SCH ×3 (07:07→16:47)
[2021-09-30] MEDS: HEPARIN NA (PORCINE) 5,000 UNITS/ML 1ML VIAL SQ SCH ×3 (07:08→21:26)
[2021-09-30] MEDS: DOCUSATE SODIUM 100 MG CAPSULE (FP) PO SCH ×3 (07:08→21:26)
[2021-09-30 07:25] LABS: HEMATOCRIT 33.2 % (35.4-49); HEMOGLOBIN 11.3 GM/dL (11.7-16.9); MCH 31.4 pg (25.7-33.7); MCHC 33.9 g/dl (32.0-35.9); MEAN CELL VOLUME 92.6 fl (80-96); MEAN PLT VOLUME 9.1 fl (7.5-11.1); PLATELET COUNT 192 10^3/uL (134-434); RBC 3.58 M/mm3 (4.00-5.60); RDW 12.7 % (11.9-15.9); WHITE BLOOD COUNT 15.3 K/mm3 (4.0-10.0)
[2021-09-30 07:51] LABS: BLOOD UREA NITROGEN 24.2 mg/dL (7-18); CALCIUM 8.6 mg/dL (8.5-10.1)
[2021-09-30 07:55] LABS: CREATININE 0.8 mg/dL (0.55-1.3); PHOSPHOROUS 3.3 mg/dL (2.5-4.9)
[2021-09-30] MEDS: FOLIC ACID 1 MG TABLET (FP) PO SCH (09:38)
[2021-09-30] MEDS: FERROUS SO4 325 MG TABLET (FP) PO SCH (09:38)
[2021-09-30] MEDS ORDERED: ACETAMINOPHEN 325 MG TABLET (FP) PO PRN (19:56)
[2021-09-30] MEDS: MELATONIN 5 MG TABLETS PO SCH (21:26)
[2021-10-01] MEDS ORDERED: ceFAZolin SODIUM 1 GM VIAL ONE ×3 (00:48→17:07)
[2021-10-01] MEDS ORDERED: DEXTROSE 5%-WATER - 50 ML IVPB ONE ×3 (00:48→17:08)
[2021-10-01] MEDS ORDERED: ACETAMINOPHEN 325 MG TABLET (FP) PO ONE (01:12)
[2021-10-01] MEDS: CEFAZOLIN 1 GM in DEXTROSE 5%-WATER - 1 GM/50 ML IVPB IVPB SCH ×3 (01:25→17:11)
[2021-10-01] MEDS: DOCUSATE SODIUM 100 MG CAPSULE (FP) PO SCH ×3 (06:15→21:19)
[2021-10-01] MEDS: HEPARIN NA (PORCINE) 5,000 UNITS/ML 1ML VIAL SQ SCH ×3 (06:16→21:19)
[2021-10-01] MEDS ORDERED: ACETAMINOPHEN 500 MG TABLET (FP) PO PRN (07:50)
[2021-10-01 09:52] LABS: BASO % 0.1 % (0-2.0); HEMOGLOBIN 10.1 GM/dL (11.7-16.9); LYMPH % 10.4 % (8-40); MCH 31.3 pg (25.7-33.7); MCHC 34.7 g/dl (32.0-35.9); MEAN CELL VOLUME 90.3 fl (80-96); NEUT % 79.5 % (42.8-82.8); PLATELET COUNT 153 10^3/uL (134-434); RBC 3.21 M/mm3 (4.00-5.60); RDW 12.9 % (11.9-15.9); WHITE BLOOD COUNT 11.8 K/mm3 (4.0-10.0)
[2021-10-01] MEDS: FOLIC ACID 1 MG TABLET (FP) PO SCH (09:56)
[2021-10-01] MEDS: FERROUS SO4 325 MG TABLET (FP) PO SCH (09:56)
[2021-10-01 10:15] LABS: BLOOD UREA NITROGEN 16.1 mg/dL (7-18)
[2021-10-01 10:17] LABS: BILIRUBIN,TOTAL 0.8 mg/dL (0.2-1); MAGNESIUM 2.2 mg/dL (1.8-2.4)
[2021-10-01 10:18] LABS: CREATININE 0.6 mg/dL (0.55-1.3)
[2021-10-01 10:19] LABS: PHOSPHOROUS 2.4 mg/dL (2.5-4.9)
[2021-10-01 10:30] LABS: ALBUMIN 2.6 g/dl (3.4-5.0); TOT PROT 5.2 g/dl (6.4-8.2)
[2021-10-01] MEDS ORDERED: NALOXONE HCL 0.4 MG/ML VIAL IVPUSH PRN (19:22)
[2021-10-01] MEDS ORDERED: ONDANSETRON 4 MG/2 ML VIAL IVPUSH PRN ×2 (19:22)
[2021-10-01] MEDS ORDERED: diphenhydrAMINE HCL 25 MG CAPSULE (FP) PO PRN (19:22)
[2021-10-01] MEDS: MELATONIN 5 MG TABLETS PO SCH (21:19)
[2021-10-02] MEDS ORDERED: DEXTROSE 5%-WATER - 50 ML IVPB ONE (01:24)
[2021-10-02] MEDS ORDERED: ceFAZolin SODIUM 1 GM VIAL ONE (01:24)
[2021-10-02] MEDS ORDERED: CEFAZOLIN 1 GM in DEXTROSE 5%-WATER - 1 GM/50 ML IVPB IVPB SCH (02:00)
[2021-10-02] MEDS: DOCUSATE SODIUM 100 MG CAPSULE (FP) PO SCH ×2 (05:49→13:58)
[2021-10-02] MEDS: HEPARIN NA (PORCINE) 5,000 UNITS/ML 1ML VIAL SQ SCH ×2 (05:49→13:58)
[2021-10-02 05:50] VITALS: PULSE 84; TEMP 98.2
[2021-10-02 08:59] LABS: HEMATOCRIT 29.6 % (35.4-49); HEMOGLOBIN 10.2 GM/dL (11.7-16.9); MCH 31.4 pg (25.7-33.7); MCHC 34.4 g/dl (32.0-35.9); MEAN CELL VOLUME 91.2 fl (80-96); MEAN PLT VOLUME 8.2 fl (7.5-11.1); PLATELET COUNT 156 10^3/uL (134-434); RBC 3.24 M/mm3 (4.00-5.60); RDW 12.8 % (11.9-15.9)
[2021-10-02] MEDS ORDERED: NAPH,MB-DB/K PH,MBDB POWDER PACKET PO ONE (09:00)
[2021-10-02 09:34] LABS: CALCIUM 8.5 mg/dL (8.5-10.1)
[2021-10-02 09:35] LABS: ALBUMIN 2.7 g/dl (3.4-5.0); BLOOD UREA NITROGEN 15.5 mg/dL (7-18)
[2021-10-02 09:38] LABS: CREATININE 0.5 mg/dL (0.55-1.3)
[2021-10-02 09:39] LABS: BILIRUBIN,TOTAL 0.8 mg/dL (0.2-1); TOT PROT 5.6 g/dl (6.4-8.2)
[2021-10-02 09:41] VITALS: BP 111/71
[2021-10-02] MEDS ORDERED: FERROUS SO4 325 MG TABLET (FP) PO SCH (10:00)
[2021-10-02] MEDS ORDERED: FOLIC ACID 1 MG TABLET (FP) PO SCH (10:00)
== END 2021-10-02 17:03 | disposition home or self-care (01) | DRG 454 ==
LOC: J2C 04:18 → EDSTATUS 10:39 → J4W 16:50 → J5S 10-01 19:07
PROVIDERS: ADMIT Neurological Surgery
PROC: 0SG1071 Fusion of 2 or more Lumbar Vertebral Joints with Autologous Tissue Substitute, Posterior Approach, Posterior Column, Open Approach (ICD-10-PCS; 2021-09-29)
PROC: 0SG007J Fusion of Lumbar Vertebral Joint with Autologous Tissue Substitute, Posterior Approach, Anterior Column, Open Approach (ICD-10-PCS; 2021-09-29)
PROC: 0SB20ZZ Excision of Lumbar Vertebral Disc, Open Approach (ICD-10-PCS; 2021-09-29)
PROC: 01NB0ZZ Release Lumbar Nerve, Open Approach (ICD-10-PCS; 2021-09-29)
PROC: 0SP004Z Removal of Internal Fixation Device from Lumbar Vertebral Joint, Open Approach (ICD-10-PCS; 2021-09-29)
PROC: 0SG30AJ Fusion of Lumbosacral Joint with Interbody Fusion Device, Posterior Approach, Anterior Column, Open Approach (ICD-10-PCS; 2021-09-29)
PROC: 0SG3071 Fusion of Lumbosacral Joint with Autologous Tissue Substitute, Posterior Approach, Posterior Column, Open Approach (ICD-10-PCS; 2021-09-29)
PROC: 00QT0ZZ Repair Spinal Meninges, Open Approach (ICD-10-PCS; 2021-09-29)
PROC: 4A1004G Monitoring of Central Nervous Electrical Activity, Intraoperative, Open Approach (ICD-10-PCS; 2021-09-29)
PROC: 0SG10AJ Fusion of 2 or more Lumbar Vertebral Joints with Interbody Fusion Device, Posterior Approach, Anterior Column, Open Approach (ICD-10-PCS; principal; 2021-09-29 11:30)
DX: M47.816 Spondylosis without myelopathy or radiculopathy, lumbar region (principal); G97.41 Accidental puncture or laceration of dura during a procedure; M48.07 Spinal stenosis, lumbosacral region; I10 Essential (primary) hypertension; E78.5 Hyperlipidemia, unspecified; I95.9 Hypotension, unspecified; M40.209 Unspecified kyphosis, site unspecified; M40.57 Lordosis, unspecified, lumbosacral region; M48.061 Spinal stenosis, lumbar region without neurogenic claudication; Y83.9 Surgical procedure, unspecified as the cause of abnormal reaction of the patient, or of later complication, without mention of misadventure at the time of the procedure
CPT/HCPCS: 36415; 72131-TC; 80048; 80053; 83735; 84100; 85025; 85027; 86850; 86900; 86901; 94010; 94760; 97116-GP; 97161-GP; J0131; J1644

== ENCOUNTER 2024-05-05 12:09 | Inpatient (IN) | payer OTHER ==
[2024-05-05 12:49] VITALS: BMI 24.3
[2024-05-05] MEDS ORDERED: GABAPENTIN 300 MG CAPSULE ONE ×2 (14:02→21:24)
[2024-05-05] MEDS ORDERED: ACETAMINOPHEN INJECTION 100 ML IVPB ONE (14:02)
[2024-05-05] MEDS: ACETAMINOPHEN 1000 MG/100 ML BAG IVPB ONE (14:21)
[2024-05-05] MEDS: GABAPENTIN 300 MG CAPSULE PO ONE (14:22)
[2024-05-05 14:30] LABS: BASO % 0.5 % (0-2.0); HEMATOCRIT 41.1 % (35.4-49); HEMOGLOBIN 13.6 GM/dL (11.7-16.9); LYMPH % 21.2 % (8-40); MEAN CELL VOLUME 87.9 fl (80-96); MEAN PLT VOLUME 8.6 fl (7.5-11.1); MONO % 8.4 % (3.8-10.2); NEUT % 67.9 % (42.8-82.8); PLATELET COUNT 186 10^3/uL (134-434); RBC 4.68 M/mm3 (4.00-5.60); RDW 13.4 % (11.9-15.9); WHITE BLOOD COUNT 6.7 K/mm3 (4.0-10.0)
[2024-05-05 14:50] LABS: POTASSIUM 4.7 mmol/L (3.5-5.1)
[2024-05-05 14:52] LABS: ALBUMIN 3.5 g/dl (3.4-5.0); BLOOD UREA NITROGEN 20.3 mg/dL (7-18); CALCIUM 9.1 mg/dL (8.5-10.1)
[2024-05-05 14:55] LABS: CREATININE 0.9 mg/dL (0.55-1.3)
[2024-05-05 14:57] LABS: BILIRUBIN,TOTAL 0.4 mg/dL (0.2-1); TOT PROT 7.7 g/dl (6.4-8.2)
[2024-05-05] MEDS ORDERED: DEXAMETHASONE SOD PHOSPHATE 10 MG/1 ML VIAL ONE ×2 (15:18→16:53)
[2024-05-05] MEDS: DEXAMETHASONE SOD PHOSPHATE 10 MG/1 ML VIAL IVPUSH ONE ×2 (15:23→17:07)
[2024-05-05] MEDS ORDERED: KETOROLAC TROMETHAMINE 15 MG/ML VIAL ONE (16:53)
[2024-05-05] MEDS: KETOROLAC TROMETHAMINE 15 MG/ML VIAL IVPUSH ONE (17:07)
[2024-05-05] MEDS ORDERED: KETOROLAC TROMETHAMINE 15 MG/ML VIAL IVPUSH PRN (20:05)
[2024-05-05] MEDS ORDERED: ACETAMINOPHEN 1000 MG/100 ML BAG IVPB PRN (20:06)
[2024-05-05] MEDS: METHYLPREDNISOLONE PO ONE (20:39)
[2024-05-05] MEDS ORDERED: SENNOSIDES 8.6MG TABLET (FP) PO ONE (21:24)
[2024-05-05] MEDS ORDERED: POLYETHYLENE GLYCOL (HEALTHYLAX) 3350 17 GM PACKET ONE (21:24)
[2024-05-05] MEDS: POLYETHYLENE GLYCOL (HEALTHYLAX) 3350 17 GM PACKET PO SCH (21:34)
[2024-05-05] MEDS: SENNOSIDES 8.6MG TABLET (FP) PO SCH (21:35)
[2024-05-05] MEDS: GABAPENTIN 300 MG CAPSULE PO SCH (21:35)
[2024-05-06] MEDS ORDERED: BISACODYL 10 MG SUPP.RECT PR PRN (08:24)
[2024-05-06 08:54] LABS: HEMATOCRIT 39.8 % (35.4-49); HEMOGLOBIN 13.3 GM/dL (11.7-16.9); MCH 29.3 pg (25.7-33.7); MCHC 33.5 g/dl (32.0-35.9); MEAN CELL VOLUME 87.6 fl (80-96); MEAN PLT VOLUME 8.7 fl (7.5-11.1); PLATELET COUNT 185 10^3/uL (134-434); RBC 4.55 M/mm3 (4.00-5.60); RDW 13.2 % (11.9-15.9); WHITE BLOOD COUNT 9.8 K/mm3 (4.0-10.0)
[2024-05-06 09:09] LABS: POTASSIUM 4.5 mmol/L (3.5-5.1)
[2024-05-06 09:10] LABS: BLOOD UREA NITROGEN 25.8 mg/dL (7-18); CALCIUM 8.9 mg/dL (8.5-10.1)
[2024-05-06 09:11] LABS: MAGNESIUM 2.1 mg/dL (1.8-2.4)
[2024-05-06 09:14] LABS: CREATININE 0.9 mg/dL (0.55-1.3)
[2024-05-06] MEDS: ENOXAPARIN NA (PORCINE) 40 MG/0.4 ML DISP.SYRIN SQ SCH (09:27)
[2024-05-06] MEDS: PANTOPRAZOLE 40 MG TABLET PO SCH (09:27)
[2024-05-06] MEDS: METHYLPREDNISOLONE PO ONE (09:27)
[2024-05-06 09:53] LABS: ANISOCYTOSIS 0; MACROCYTOSIS 0
[2024-05-06] MEDS ORDERED: FAMOTIDINE 20 MG TABLET PO SCH (10:00)
[2024-05-06] MEDS ORDERED: methylPREDNISolone 8 MG TABLET PO ONE (10:00)
[2024-05-06] MEDS: KETOROLAC TROMETHAMINE 15 MG/ML VIAL IVPUSH SCH (18:05)
[2024-05-06 18:28] LABS: URINE APPEARANCE CLEAR; URINE BILIRUBIN NEGATIVE (NEGATIVE); URINE COLOR YELLOW; URINE GLUCOSE (UA) 3+ (NEGATIVE); URINE KETONE TRACE (NEGATIVE); URINE LEUK ESTERASE NEGATIVE (NEGATIVE); URINE NITRITE NEGATIVE (NEGATIVE); URINE PROTEIN NEGATIVE (NEGATIVE)
[2024-05-06] MEDS: OLANZapine 5 MG TABLET PO SCH (21:31)
[2024-05-06] MEDS: PREGABALIN 75 MG CAPSULE PO SCH (21:31)
[2024-05-06] MEDS: MEMANTINE HCL 10 MG TABLET (FP) PO SCH (21:31)
[2024-05-06] MEDS: QUEtiapine FUMARATE 25 MG TABLET PO SCH (21:31)
[2024-05-07] MEDS: MELATONIN 5 MG TABLETS PO ONE (01:21)
[2024-05-07 08:57] LABS: POTASSIUM 4.5 mmol/L (3.5-5.1)
[2024-05-07 08:58] LABS: CALCIUM 8.7 mg/dL (8.5-10.1)
[2024-05-07 08:59] LABS: BASO % 0.1 % (0-2.0); BLOOD UREA NITROGEN 33.2 mg/dL (7-18); EOS % 0.1 % (0-4.5); HEMATOCRIT 37.4 % (35.4-49); HEMOGLOBIN 12.2 GM/dL (11.7-16.9); LYMPH % 10.3 % (8-40); MCHC 32.7 g/dl (32.0-35.9); MEAN CELL VOLUME 88.6 fl (80-96); MEAN PLT VOLUME 9.2 fl (7.5-11.1); MONO % 5.9 % (3.8-10.2); NEUT % 83.6 % (42.8-82.8); PLATELET COUNT 196 10^3/uL (134-434); RBC 4.22 M/mm3 (4.00-5.60); RDW 13.2 % (11.9-15.9); WHITE BLOOD COUNT 13.1 K/mm3 (4.0-10.0)
[2024-05-07] MEDS ORDERED: methylPREDNISolone 8 MG TABLET PO ONE (10:00)
[2024-05-07] MEDS: METHYLPREDNISOLONE PO ONE (10:41)
[2024-05-07] MEDS: GABAPENTIN 300 MG CAPSULE PO SCH (21:38)
[2024-05-07] MEDS: PREGABALIN 50 MG CAPSULE PO SCH (21:39)
[2024-05-07] MEDS: INSULIN ASPART SLIDING SCALE (NOVOLOG) 1 VIAL SQ SCH (21:48)
[2024-05-07] MEDS: INSULIN (LEVEMIR) 100 UNITS/ML UNITS SQ SCH (21:49)
[2024-05-07] MEDS ORDERED: GABAPENTIN 300 MG CAPSULE PO SCH (22:00)
[2024-05-07] MEDS: SODIUM CHLORIDE 1,000 ML IV SCH (22:59)
[2024-05-08 10:22] LABS: HEMATOCRIT 40.1 % (35.4-49); HEMOGLOBIN 13.2 GM/dL (11.7-16.9); MCH 28.9 pg (25.7-33.7); MCHC 32.9 g/dl (32.0-35.9); MEAN CELL VOLUME 87.9 fl (80-96); MEAN PLT VOLUME 9.3 fl (7.5-11.1); PLATELET COUNT 183 10^3/uL (134-434); RBC 4.56 M/mm3 (4.00-5.60); RDW 13.2 % (11.9-15.9)
[2024-05-08 10:39] LABS: POTASSIUM 4.3 mmol/L (3.5-5.1)
[2024-05-08 10:42] LABS: ALBUMIN 3.2 g/dl (3.4-5.0); BLOOD UREA NITROGEN 26.4 mg/dL (7-18)
[2024-05-08 10:46] LABS: CREATININE 0.8 mg/dL (0.55-1.3)
[2024-05-08 10:47] LABS: BILIRUBIN,TOTAL 0.4 mg/dL (0.2-1); TOT PROT 6.8 g/dl (6.4-8.2)
[2024-05-08 15:43] VITALS: PULSE 65
[2024-05-08 18:39] VITALS: BP 143/85; RESP 18; TEMP 97.2
[2024-05-09] MEDS ORDERED: methylPREDNISolone 4 MG TABLET PO ONE (10:00)
[2024-05-10] MEDS ORDERED: methylPREDNISolone 4 MG TABLET PO ONE (10:00)
[2024-05-11] MEDS ORDERED: methylPREDNISolone 4 MG TABLET PO ONE (10:00)
== END 2024-05-08 19:00 | disposition home or self-care (01) | DRG 552 ==
LOC: JER 12:09 → JERBED 18:31 → J7W 05-06 02:21 → OBSVTOIN 05-06 12:21 → UNDODISIN 05-08 18:58
PROVIDERS: ADMIT Internal Medicine; ATTEND Internal Medicine
DX: M54.50 Low back pain, unspecified (principal); D72.829 Elevated white blood cell count, unspecified; F02.80 Dementia in other diseases classified elsewhere, unspecified severity, without behavioral disturbance, psychotic disturbance, mood disturbance, and anxiety; G30.9 Alzheimer's disease, unspecified; G47.00 Insomnia, unspecified; K59.00 Constipation, unspecified; M54.16 Radiculopathy, lumbar region
CPT/HCPCS: 36415; 72100-TC-FY; 80048; 80053; 81003; 82962; 83036; 83735; 85025; 85027; 85651; 86140; 93005; 93010; 97116-GP; 97161-GP; 99285-25; G0378; J0131; J1100

== ENCOUNTER 2025-06-21 16:35 | Inpatient (IN) | payer OTHER ==
[2025-06-21 16:59] VITALS: BMI 25.8
[2025-06-21] MEDS ORDERED: ONDANSETRON 4 MG/2 ML VIAL ONE (17:13)
[2025-06-21] MEDS ORDERED: KETOROLAC TROMETHAMINE 15 MG/ML VIAL ONE (17:43)
[2025-06-21] MEDS: SODIUM CHLORIDE 500 ML IV STA (17:50)
[2025-06-21] MEDS: ONDANSETRON 4 MG/2 ML VIAL IVPUSH ONE (17:50)
[2025-06-21] MEDS: KETOROLAC TROMETHAMINE 15 MG/ML VIAL IVPUSH ONE (17:51)
[2025-06-21 17:52] LABS: ABSOLUTE IMMATURE GRANULOCYTES 0.10 x10^3/uL (0.0-0.031); BASOPHILS # 0.01 x10^3/uL (0.01-0.08); EOSINOPHIL % 0.0 % (0.8-7.0); EOSINOPHILS # 0.00 x10^3/uL (0.04-0.54); MCHC 31.7 g/dl (32.3-36.5); MEAN CELL VOLUME 92.9 fl (79.0-92.2); MEAN PLT VOLUME 10.5 fl (9.4-12.4); MONOCYTE # 1.08 x10^3/uL (0.30-0.82); MONOCYTE % 7.3 % (5.3-12.2); RDW 11.9 % (12.2-16.6)
[2025-06-21 18:02] LABS: INR 1.22 (0.83-1.09); PROTHROMBIN TIME (PATIENT) 13.3 SEC (9.7-13.0)
[2025-06-21 18:05] LABS: ACTIVATED PTT 28.3 SECONDS (25.2-36.5)
[2025-06-21 18:06] LABS: CO2 26.0 mmol/L (21-32); GLUCOSE,RANDOM 189.0 mg/dL (74-106)
[2025-06-21 18:09] LABS: CREATININE 0.8 mg/dL (0.55-1.3)
[2025-06-21 18:10] LABS: SGOT/AST 32.0 U/L (15-37)
[2025-06-21 18:11] LABS: TOT PROT 6.8 g/dl (6.4-8.2)
[2025-06-21 18:12] LABS: ALK PHOS 139.0 U/L (45-117)
[2025-06-21 18:14] LABS: N-TERMINAL BNP 331.8 pg/ml (5-125); SGPT/ALT 40.0 U/L (13-61)
[2025-06-21 18:19] LABS: EPI CELLS 8 /uL (0-25.1); HYALINE CASTS 3 /uL (0-3.1); URINE APPEARANCE TURBID; URINE BACTERIA >9,000 /uL (0-1359); URINE BILIRUBIN NEGATIVE (NEGATIVE); URINE COLOR YELLOW; URINE GLUCOSE (UA) NEGATIVE (NEGATIVE); URINE KETONE NEGATIVE (NEGATIVE); URINE LEUK ESTERASE 3+ (NEGATIVE); URINE NITRITE POSITIVE (NEGATIVE); URINE PROTEIN 2+ (NEGATIVE); URINE RBC 408 /uL (0-23.9); URINE UROBILINOGEN 1.0 mg/dL (0.2-1.0); URINE WBC 3472 /uL (0-25.8)
[2025-06-21] MEDS ORDERED: CEFTRIAXONE 2 GM-D5W BAG 2 GM/50 ML BAG IVPB ONE (18:40)
[2025-06-21 18:53] LABS: YEAST NOT SEEN (NEGATIVE)
[2025-06-21] MEDS: SODIUM CHLORIDE 0.9% 500 ML INFUS.BAG IV ONE (19:13)
[2025-06-21] MEDS: CEFTRIAXONE 2 GM-D5W BAG 2 GM/50 ML BAG IVPB ONE (19:13)
[2025-06-21] MEDS ORDERED: DOCUSATE SODIUM 100 MG CAPSULE (FP) PO PRN (20:44)
[2025-06-22] MEDS: PANTOPRAZOLE 20 MG TABLET PO SCH (08:06)
[2025-06-22] MEDS: INSULIN ASPART SLIDING SCALE (NOVOLOG) 1 VIAL SQ SCH (08:06)
[2025-06-22 08:36] LABS: ABSOLUTE IMMATURE GRANULOCYTES 0.07 x10^3/uL (0.0-0.031); BASOPHILS # 0.01 x10^3/uL (0.01-0.08); EOSINOPHIL % 0.2 % (0.8-7.0); EOSINOPHILS # 0.02 x10^3/uL (0.04-0.54); MCHC 30.6 g/dl (32.3-36.5); MEAN CELL VOLUME 95.4 fl (79.0-92.2); MEAN PLT VOLUME 11.1 fl (9.4-12.4); MONOCYTE # 0.81 x10^3/uL (0.30-0.82); MONOCYTE % 7.2 % (5.3-12.2); RDW 12.0 % (12.2-16.6)
[2025-06-22 09:35] LABS: CO2 30.0 mmol/L (21-32)
[2025-06-22 09:36] LABS: GLUCOSE,RANDOM 132.0 mg/dL (74-106)
[2025-06-22 09:39] LABS: CREATININE 0.8 mg/dL (0.55-1.3)
[2025-06-22] MEDS: POLYETHYLENE GLYCOL (HEALTHYLAX) 3350 17 GM PACKET PO SCH (09:45)
[2025-06-22] MEDS: GABAPENTIN 300 MG CAPSULE PO SCH (09:46)
[2025-06-22] MEDS: MEMANTINE HCL 10 MG TABLET (FP) PO SCH (09:46)
[2025-06-22] MEDS: CEFTRIAXONE 1 GM in DEXTROSE 5%-WATER - 50 ML IVPB SCH (09:47)
[2025-06-23 09:16] LABS: ABSOLUTE IMMATURE GRANULOCYTES 0.04 x10^3/uL (0.0-0.031); BASOPHILS # 0.02 x10^3/uL (0.01-0.08); EOSINOPHIL % 0.9 % (0.8-7.0); EOSINOPHILS # 0.07 x10^3/uL (0.04-0.54); MCHC 31.6 g/dl (32.3-36.5); MEAN CELL VOLUME 93.9 fl (79.0-92.2); MEAN PLT VOLUME 11.2 fl (9.4-12.4); MONOCYTE # 0.90 x10^3/uL (0.30-0.82); MONOCYTE % 11.4 % (5.3-12.2); RDW 11.9 % (12.2-16.6)
[2025-06-23 09:46] LABS: GLUCOSE,RANDOM 114.0 mg/dL (74-106)
[2025-06-23 09:47] LABS: CO2 29.0 mmol/L (21-32)
[2025-06-23 09:49] LABS: CREATININE 0.7 mg/dL (0.55-1.3)
[2025-06-23 09:50] LABS: ALK PHOS 128.0 U/L (45-117); SGOT/AST 18.0 U/L (15-37); SGPT/ALT 26.0 U/L (13-61)
[2025-06-23 09:51] LABS: TOT PROT 6.1 g/dl (6.4-8.2)
[2025-06-23] MEDS: KETOROLAC TROMETHAMINE 15 MG/ML VIAL IVPUSH PRN (11:41)
[2025-06-24] MEDS ORDERED: INSULIN (NOVOLOG MIX 70/30) 100 UNITS/ML MDV SQ ONE (11:32)
[2025-06-26 02:44] VITALS: RESP 18
[2025-06-26 06:56] VITALS: TEMP 97.5
[2025-06-26] MEDS: SULFAMETHOXAZOLE/TRIMETHOPRIM 800MG/160MG D.S. TABLET PO SCH (09:01)
[2025-06-26 14:00] VITALS: BP 127/82; PULSE 80
== END 2025-06-26 18:33 | disposition home or self-care (01) | DRG 690 ==
LOC: JER 16:35 → JERBED 20:35 → J7W 22:54 → OBSVTOIN 06-22 15:29
PROVIDERS: ADMIT Internal Medicine; ATTEND Internal Medicine
DX: N39.0 Urinary tract infection, site not specified (principal); F03.90 Unspecified dementia, unspecified severity, without behavioral disturbance, psychotic disturbance, mood disturbance, and anxiety; E11.9 Type 2 diabetes mellitus without complications; M54.50 Low back pain, unspecified
CPT/HCPCS: 36415; 70450-TC; 71045-TC-FY; 72131-TC; 74177-TC; 80048; 80053; 81003; 82962; 83036; 83605; 83690; 83735; 83880; 84100; 84484; 85025; 85610; 85730; 86850; 86900; 86901; 87086; 87637-QW; 93005; 93010; 97116-GP; 97162-GP; 99285-25; G0378; Q9967